=== PATIENT | male | born 1970 ===

== ENCOUNTER → 2018-09-20 | Outpatient (CLI) | payer BC ==
[2018-09-20 19:37] LABS: ANION GAP 14.9; CHLORIDE,CL 101 mmol/L (101-111); SODIUM,NA 136 mmol/L (135-145)
== END ==
LOC: DL.CLIN 14:54
PROVIDERS: ATTEND Nurse Practitioner
DX: I10 Essential (primary) hypertension (principal)
CPT/HCPCS: 80053; 80061; 85025

== ENCOUNTER 2023-07-15 18:09 | Emergency (ER) | payer BC ==
[2023-07-15] MEDS: Nitroglycerin 0.4 MG Tab.SL SL ONE ×2 (18:40→18:45)
[2023-07-15 18:41] LABS: BASOPHILS PERCENT AUTO 0.5 % (0.0-1.0); EOSINOPHILS PERCENT AUTO 2.8 % (1.0-3.0); HEMATOCRIT 43.7 % (40.0-54.0); HEMOGLOBIN 15.2 g/dL (14.0-18.0); LYMPHOCYTES PERCENT AUTO 41.3 % (20.5-50.1); MEAN CORPUSCULAR HEMOGLOBIN 31.2 pg (27.0-34.0); MEAN CORPUSCULAR HGB CONC 34.8 g/dL (33.0-35.0); MEAN CORPUSCULAR VOLUME 89.7 fL (80-100); MONOCYTES PERCENT AUTO 11.3 % (2-8); NEUTROPHILS PERCENT AUTO 44.1 % (42.2-75.2); PLATELET COUNT,PLT 271 10^3/uL (150-450); RED BLOOD CELL COUNT 4.87 10^6/uL (4.6-6.2); WHITE BLOOD CELL COUNT,WBC 6.1 10^3/uL (5.0-10.0)
[2023-07-15] MEDS: Sodium Chloride 0.9% 10 ML Syringe FLUSH PRN (18:59)
[2023-07-15 19:01] LABS: A/G RATIO 1.3; ALBUMIN 3.8 g/dL (3.4-5.0); ANION GAP 10.7 mEq/L (7-13); BILIRUBIN TOTAL 0.3 mg/dL (0.2-1.0); BUN/CREATININE RATIO 17.6 (No establ ref range); CALCIUM 8.6 mg/dL (8.5-10.1); CREATININE 1.08 mg/dL (0.70-1.30); EST CRCL DRUG DOSING (CG) 78.29 mL/min; POTASSIUM,K 3.7 mmol/L (3.5-5.1); PROTEIN TOTAL,TP 6.8 g/dL (6.4-8.2)
[2023-07-15] MEDS: Sodium Chloride 0.9% 1,000 ML IV SCH (19:53)
[2023-07-15] MEDS: Aspirin 81 MG Tab.Chew PO ONE (19:53)
[2023-07-15] MEDS: Morphine 4 MG/ML Syringe IVPUSH ONE (21:12)
== END 2023-07-15 21:18 | disposition home or self-care (01) ==
LOC: DL.ED 18:09
DX: R07.89 Other chest pain (principal); R03.0 Elevated blood-pressure reading, without diagnosis of hypertension; K21.9 Gastro-esophageal reflux disease without esophagitis; Z90.49 Acquired absence of other specified parts of digestive tract; Z79.899 Other long term (current) drug therapy
CPT/HCPCS: 36415; 71045; 80053; 84484; 85025; 93005; 93010; 99284; 99285; A9270; J7030; J3490